=== PATIENT | male | born 1965 | race Caucasian/White ===

== ENCOUNTER 2018-03-09 05:30 | Day surgery (SDC) | payer OTHER ==
[2018-03-09] MEDS ORDERED: LIDOCAINE 1% 2 ML INJ ID PRN (06:06)
[2018-03-09] MEDS ORDERED: LR 1,000 ML IV ONE (06:06)
[2018-03-09] MEDS ORDERED: LIDOCAINE 1% 2 ML INJ ONE (06:15)
[2018-03-09] MEDS ORDERED: ROCURONIUM 50 MG/5 ML VIAL ONE (06:40)
[2018-03-09] MEDS ORDERED: LIDOCAINE 2% 5 ML SDV ONE (06:40)
[2018-03-09] MEDS ORDERED: DEXAMETHASONE 4 MG/ML VIAL ONE (06:40)
[2018-03-09] MEDS ORDERED: ONDANSETRON 4 MG/2 ML VIAL ONE (06:40)
[2018-03-09] MEDS ORDERED: PROPOFOL 200 MG/20 ML VIAL ONE (06:40)
[2018-03-09] MEDS ORDERED: fentaNYL 250 MCG/5 ML INJ ONE (06:40)
[2018-03-09] MEDS ORDERED: PROPOFOL/EMULSION 500 MG/50 ML BOTTLE IV ONE ×2 (06:41)
[2018-03-09] MEDS ORDERED: GABAPENTIN 300 MG CAP PO ONE (06:45)
[2018-03-09] MEDS ORDERED: ACETAMINOPHEN 500 MG TAB PO ONE (06:45)
[2018-03-09] MEDS ORDERED: ceFAZolin 2 GM/DEXTROSE 100 ML IV ONE (06:45)
[2018-03-09] MEDS ORDERED: TRANEXAMIC ACID 1,000 MG in NS 100 ML IV ONE (06:45)
--- NOTE | 2018-03-09 06:45 | PDHPUP ---
History & Physical Update H&P update statement: This history and physical update is based on an assessment of the patient which was completed after admission or registration (within 24 hours), but prior to the surgery/procedure. H&P update: H&P reviewed & patient examined, no change in patient's condition since H&P completed
[2018-03-09] MEDS ORDERED: VANCOMYCIN 500 MG/10 ML VIAL IV ONE (06:46)
[2018-03-09] MEDS ORDERED: SURGIFLO MATRIX KIT WITH THROMBIN 8 ML TP ONE (06:46)
[2018-03-09] MEDS ORDERED: BUPIVACAINE/EPI 0.5% 30 ML SDV ONE (06:46)
[2018-03-09] MEDS ORDERED: BACITRACIN 50,000 UNITS/10 ML SYR IRR ONE (06:47)
[2018-03-09] MEDS ORDERED: MIDAZOLAM 2 MG/2 ML VIAL IVP ONE (06:49)
[2018-03-09 06:50] LABS: PLATELET COUNT 190 10^3/uL (150-400)
[2018-03-09] MEDS ORDERED: MEPERIDINE 25 MG/0.5 ML AMP IVP PRN (06:50)
[2018-03-09] MEDS ORDERED: LR 500 ML IV PRN (06:50)
[2018-03-09] MEDS ORDERED: NALOXONE HCL 0.4 MG/ML INJ IVP PRN (06:50)
[2018-03-09] MEDS ORDERED: oxyCODONE IR 5 MG TAB PO PRN (06:50)
[2018-03-09] MEDS ORDERED: PROMETHAZINE HCL 25 MG/ML INJ IVP PRN (06:50)
[2018-03-09] MEDS ORDERED: HYDROmorphONE/DILAUDID 2 MG/ML INJ IVP PRN (06:50)
[2018-03-09] MEDS ORDERED: METOCLOPRAMIDE 10 MG/2 ML VIAL IVP PRN (06:50)
[2018-03-09] MEDS ORDERED: PHENYLEPHRINE HCL 100 MCG/ML SYR IVP PRN (06:50)
--- NOTE | 2018-03-09 07:01 | PDANEPAE ---
ANE Past Medical History - Cardiovascular History Hx Hypertension: No Hx Arrhythmias: No Hx Chest Pain: No Hx Coronary Artery / Peripheral Vascular Disease: No Hx CHF / Valvular Disease: No Hx Palpitations: No - Pulmonary History Hx COPD: No Hx Asthma/Reactive Airway Disease: No Hx Recent Upper Respiratory Infection: No Hx Oxygen in Use at Home: No Hx Sleep Apnea: No Sleep Apnea Screening Result - Last Documented: Negative - Neurologic History Hx Cerebrovascular Accident: No Hx Seizures: No Hx Dementia: No - Endocrine History Hx Diabetes: No - Renal History Hx Renal Disorders: No - Liver History Hx Hepatic Disorders: No - Neurological & Psychiatric Hx Hx Neurological and Psychiatric Disorders: No - Cancer History Hx Cancer: No - Congenital Disorder History Hx Congenital Disorders: No - GI History Hx Gastrointestinal Disorders: No - Other Health History Other Health History: none - Chronic Pain History Chronic Pain: No - Surgical History Prior Surgeries: 2017 arm surgery ANE Review of Systems Review of Systems: - Exercise capacity METS (RN): 6 METS ANE Patient History - Allergies Allergies/Adverse Reactions: No Known Allergies Allergy (Verified 03/05/18 15:06) - Home Medications Home Medications: NK [No Known Home Meds] 03/05/18 [Last Taken Unknown] - NPO status NPO Since - Liquids (Date): 03/09/18 NPO Since - Liquids (Time): 03:00 NPO Since - Solids (Date): 03/08/18 NPO Since - Solids (Time): 21:00 - Anes Hx Anes Hx: no prior problems - Smoking Hx Smoking Status: Never smoked - Family Anes Hx Family Anes Hx: none Family Hx Anesthesia Complications: none ANE Labs/Vital Signs - Labs Result Diagrams: 03/09/18 06:33 - Vital Signs Blood Pressure: 135/85 Heart Rate: 68 Respiratory Rate: 16 O2 Sat (%): 96 Height: 182.88 cm Weight: 80.739 kg ANE Physical Exam - Airway Neck exam: FROM Mallampati Score: Class 1 Mouth exam: normal dental/mouth exam - Pulmonary Pulmonary: no respiratory distress, no rales or rhonchi, clear to auscultation - Cardiovascular Cardiovascular: regular rate and rhythym, no murmur, rub, or gallop - ASA Status ASA Status: I ANE Anesthesia Plan Anesthesia Plan: general endotracheal anesthesia
--- NOTE | 2018-03-09 07:02 | POSTANESTH ---
Post Anesthetic Evaluation Cardiovascular Status: Normal, Stable Respiratory Status: Normal, Stable Level of Consciousness/Mental Status: Can Participate in Eval Pain Control: Adequate, Prn Tx Ordered Nausea/Vomiting Control: Adequate, Prn Tx Ordered Complications Possibly Related to Anesthesia: None Noted
[2018-03-09] MEDS ORDERED: fentaNYL 100 MCG/2 ML INJ ONE (08:55)
[2018-03-09] MEDS: fentaNYL 100 MCG/2 ML INJ IVP PRN ×2 (08:57→09:10)
--- NOTE | 2018-03-09 09:27 | SUROPNOTE ---
[facility] Operative Report - Surgery Date: 03/09/18 Pre-operative Diagnosis: Lt L5/S1 Herniated nucleus pulposus Lt Lower extremity radiculopathy Post-operative Diagnosis: Same Procedure: Lt L5/S1 Minimally invasive microdiscectomy Use of intra-operative fluoroscopy Use of intra-operative neuromonitoring, including EMG, MEP, and SSEP modalities Use of a surgical microscope Surgeon: Uli Onofre MD Bindery Machine Operator: Ayaka Pizarro Anesthesia: General endotracheal anesthesia Findings: As expected Estimated Blood Loss: 5mL Drains: None Specimens: None Complications: None Condition: Transferred to PACU in stable condition. Implants: None Indications: This patient has been diagnosed with a herniated nucleus pulposus at L5/S1. Of note, he also has a right L4/5 herniated disc which was thought to be asymptomatic and will not be addressed by todays operation. I have explained all options of treatment for the patient, and the patient has elected to proceed with operative management. I have explained all risks, benefits, and alternatives of the proposed procedure. The risks that we have discussed include , blindness, nerve damage, recurrent disc herniation, infection, dural tear, failure of surgery to alleviate pre-operative symptoms, instability , and possible need for further operation. In addition to the aforementioned procedure, I also discussed with the patient that other procedures may be indicated during the course of surgery. The patient expressed understanding of this. Pre-operative: The proposed incision site was marked in the pre-operative holding area by me. The patient was then taken to the operating room in stable condition. Following smooth induction of general anesthesia, the patient was positioned prone on a Kuldip table with all down surfaces well-padded. The patient was then prepped and draped in the usual sterile fashion. Pre-operative antibiotics and tranexamic acid were administered within one hour of the incision. A surgical timeout was performed, and all parties involved in the procedure were in agreement on the correct patient, location, and procedure to be performed. Level identification: The proposed L5/S1 level was identified using C-arm fluoroscopy and the skin was marked for the proposed incision. A spinal needle was inserted under fluoroscopic guidance to the level of the decompression to be performed, 1cm lateral from midline. Following radiographic confirmation of proposed operative trajectory, a 18mm longitudinal incision was made through both the skin and fascia in an expected trajectory. Electrocautery was used to coagulate any bleeding vessels identified above the level of the fascia. A blunt probe was then passed through the fascial incision and docked on the lateral pars of the proposed level of dissection. Serial dilation was then performed, up to a size that would accommodate placement of a Metrx decompression tube. A sterile articulating arm was then attached to the table and affixed to the tube. Proper trajectory was again confirmed by lateral radiograph. The tube was docked on the caudal aspect of the cephalad level. Hemilaminotomy: A high-speed werner was used to perform a hemilaminotomy of the affected level. The ligamentum flavum was elevated from the dura using blunt dissectors, and resected using Kerrison rongeurs. Using a dural retractor, the dural sac was retracted medially to allow for visualization of the affected disc space. Any extruded disc fragments were excised at this time. Using a #11 blade on a long handle, a cruciate annulotomy was performed. A nerve hook was then used to probe the disc space and nucleus pulposus. A disc punch was passed into the disc space, and any loose or easily freed disc fragments were removed. Any bleeding epidural vessels were coagulated using bipolar cautery and all dural retractors were removed. A radiograph was taken to demonstrate the location of the microdiscectomy, with instruments placed to identify the operative disc space. Closure: The surgical field was then copiously irrigated with sterile saline. Vancomycin powder was then applied to the surgical field. #1 braided and absorbable interrupted sutures were used to repair the fascia. Then 2-0 interrupted sutures were used to repair the dermal layer, and a separate 3-0 monofilament suture was used to repair the subcutaneous layer in a running fashion. All sutures used were absorbable. Topical adhesive was then applied to the skin and allowed to dry. A sterile island dressing was applied over the surgical incision. A surgical count was performed before initiation of closure and following the procedure, and all were correct. I was present for the entire procedure. Neuromonitoring: SSEP, MEP and EMG were used throughout the case from incision until the beginning of closure. There were no significant changes throughout the case, and SSEP signals were at their pre-surgical baseline levels before surgical closure was initiated. Surgical microscope use: A surgical microscope was utilized throughout the decompressive portion of this case. This was deemed necessary for safe and accurate surgical decompression of affected nerve roots. veterinarian assistant: A safety assistant was used throughout the case, and deemed necessary for safe neural retraction, hemostasis, and suction. Recovery: The patient was extubated uneventfully in the operating room. The patient was taken to the recovery room in stable condition. Sequential compression devices for VTE prophylaxis were applied to the patients lower extremities, and were ordered to be used while the patient was non-ambulatory. Chemical VTE prophylaxis was considered to be contraindicated for this patient because of the risk of bleeding near the epidural space. Uli Onofre MD
[2018-03-09] MEDS ORDERED: oxyCODONE IR 5 MG TAB ONE (09:46)
[2018-03-09 11:10] VITALS: BP 121/78
[2018-03-09] MEDS ORDERED: CYCLOBENZAPRINE 10 MG TAB PO SCH (16:00)
== END 2018-03-09 11:15 | disposition home or self-care (01) ==
LOC: FSGY 05:30
PROVIDERS: ATTEND Orthopaedic Surgery Orthopaedic Surgery of the Spine
PROC: 4A1004G Monitoring of Central Nervous Electrical Activity, Intraoperative, Open Approach (ICD-10-PCS; principal; 2018-03-09 07:15)
PROC: 00NY0ZZ Release Lumbar Spinal Cord, Open Approach (ICD-10-PCS; principal; 2018-03-09 07:15)
DX: M51.17 Intervertebral disc disorders with radiculopathy, lumbosacral region (principal)
CPT/HCPCS: J0690; J1100; J2250; J2405; J2704; J3010; J3370